=== PATIENT | female | born 1990 | race Caucasian/White ===

== ENCOUNTER 2018-05-02 12:46 | Emergency (ER) | payer MEDICAID ==
[~2018-05-02] VITALS: Ht 175.3 cm; Wt 86.4 kg
[2018-05-02 13:04] VITALS: BP 118/75
[2018-05-02] MEDS ORDERED: PROPARACAINE/FLUORESCEIN ophthalmic drops 5ml bottle RIGHTEYE ONE (13:50)
[2018-05-02] MEDS ORDERED: neomycin/polymyxn B/gramicidin ophthalmic drops 10ml EACHEYE ONE (14:10)
== END 2018-05-02 14:29 | disposition home or self-care (01) ==
LOC: ER 12:47
DX: H10.9 Unspecified conjunctivitis (principal); H00.021 Hordeolum internum right upper eyelid; J45.909 Unspecified asthma, uncomplicated; F12.10 Cannabis abuse, uncomplicated
CPT/HCPCS: 99282

== ENCOUNTER 2020-05-05 06:53 | Day surgery (SDC) | payer MEDICAID ==
[2020-05-02 14:58] LABS: BASOPHILS # (AUTO) 0.1 X10'3 (0-0.2); BASOPHILS % (AUTO) 0.5 % (0-1); EOSINOPHILS # (AUTO) 0.1 X10'3 (0-0.9); EOSINOPHILS % (AUTO) 1.1 % (0-6); LYMPHOCYTES # (AUTO) 1.9 X10'3 (1.1-4.8); LYMPHOCYTES % (AUTO) 19.2 % (21-51); MEAN CORPUSCULAR HEMOGLOBIN 30.3 PG (27.0-31.0); MEAN CORPUSCULAR HGB CONC 34.4 g/dL (33.0-36.5); MEAN PLATELET VOLUME 9.3 FL (7.4-10.4); MONOCYTES # (AUTO) 0.6 X10'3 (0-0.9); MONOCYTES % (AUTO) 5.7 % (2-12); NEUTROPHILS # (AUTO) 7.2 X10'3 (1.8-7.7); NEUTROPHILS % (AUTO) 73.5 % (42-75); PRE OP HEMATOCRIT 42.9 % (35.0-45.0); PRE OP HEMOGLOBIN 14.8 g/dL (12.0-16.0); PRE OP PLATELET COUNT 209 X10'3 (140-440); RED BLOOD COUNT 4.88 X10'6 (4.20-5.60); RED CELL DISTRIBUTION WIDTH 12.7 % (11.5-14.5)
[2020-05-02 15:08] LABS: ALBUMIN 4.2 G/DL (3.4-5.0); ALBUMIN/GLOBULIN RATIO 1.2 (1.1-1.5); ALKALINE PHOSPHATASE 85 IU/L (46-116); BLOOD UREA NITROGEN 9 MG/DL (7-18); BUN/CREATININE RATIO 10.5 (6.6-38.0); CHLORIDE 104 MMOL/L (99-107); CREATININE 0.86 MG/DL (0.40-0.90); PRE OP ALT 35 U/L (30-65); PRE OP ANION GAP 8 (8-16); PRE OP AST 22 U/L (10-37); PRE OP BILIRUB, TOTAL 0.5 MG/DL (0.0-1.0); PRE OP GLUCOSE 94 MG/DL (70-104); PRE OP POTASSIUM 3.6 MMOL/L (3.4-5.1); PRE OP SODIUM 138 MMOL/L (135-145); TOTAL CARBON DIOXIDE 25.6 MMOL/L (24-32); TOTAL PROTEIN 7.8 G/DL (6.4-8.2); eGFR 79 ML/MIN
[2020-05-02 15:09] LABS: HCG SERUM QL NEGATIVE
[~2020-05-05] VITALS: Ht 175.3 cm; Wt 97.3 kg
[~2020-05-05 06:53] MED LIST: famotidine 20mg tablet PO ONE; ringers solution, lacted 1,000 ML IV SCH
[2020-05-05] MEDS ORDERED: ringers solution, lacted 1,000 ML IV SCH (07:24)
[2020-05-05] MEDS ORDERED: ondansetron/PF 4mg/2ml inj IV PRN (07:25)
[2020-05-05] MEDS ORDERED: morphine 2 MG/ML inj. syringe IV PRN (07:25)
[2020-05-05] MEDS ORDERED: morphine 4 MG/ML inj SYRINge IV PRN (07:25)
[2020-05-05] MEDS ORDERED: ketorolac trometh. 30mg/ml inj. IV ONE (07:25)
[2020-05-05] MEDS ORDERED: proCHLORperazine 10 MG/2 ml inj IV PRN (07:25)
[2020-05-05] MEDS ORDERED: acetaminophen 1,000mg/100ml IV 100 ML IV PRN (07:25)
[2020-05-05] MEDS ORDERED: meperidine/PF 25mg/ml syringe IV PRN ×3 (07:25)
[2020-05-05 08:19] VITALS: BP 118/72
[2020-05-05] MEDS ORDERED: neostigmine methylsulfate 1 MG/ML 10ml vial ONE (09:12)
[2020-05-05] MEDS ORDERED: sevoflurane 250ml liquid IH ONE (09:12)
[2020-05-05] MEDS ORDERED: fentaNYL/PF 50MCG/1 ML 2ML syringe ONE (09:15)
[2020-05-05] MEDS ORDERED: midazolam 2 mg/2 ml injection ONE (09:15)
[2020-05-05] MEDS ORDERED: LIDOcaine 2% 5ml jelly ONE (09:17)
[2020-05-05] MEDS ORDERED: propofol inj 20 ML IV ONE (09:22)
[2020-05-05] MEDS ORDERED: LIDOcaine 2% (20mg/ml) 5ml vial ONE (09:23)
[2020-05-05] MEDS ORDERED: rocuronium 10mg/ml inj IV ONE (09:23)
[2020-05-05] MEDS ORDERED: ondansetron/PF 4mg/2ml inj ONE (09:30)
[2020-05-05] MEDS ORDERED: glycopyrrolate 0.2mg/ml inj ONE ×2 (09:30→09:38)
[2020-05-05] MEDS ORDERED: dexamethasone sod phosphate 4mg/ml inj. ONE (09:30)
[2020-05-05 09:35] VITALS: BP 118/72
[2020-05-05 09:58] VITALS: BP 133/79
--- NOTE | 2020-05-05 09:58 | NUR ---
ARRIVED IN PACU VIA GURNEY FROM OR WITH O2 ON. REPORT RECEIVED. VS STABLE
[2020-05-05 10:08] VITALS: BP 125/78
[2020-05-05 10:18] VITALS: BP 113/62
[2020-05-05 10:28] VITALS: BP 123/79
--- NOTE | 2020-05-05 10:38 | NUR ---
UP STEADY ON FEET. AMBULATED TO BR. VOIDED. REVIEWED DISCHARGE WITH PT AND INSTRUCTED HER TO HAVE FAMILY REVIEW THEM AGAIN WITH HER. TO CAR ASSISTED BY [place] WITHOUT INCIDENT
== END 2020-05-05 10:38 | disposition home or self-care (01) ==
LOC: PAS 06:53
PROVIDERS: ATTEND Obstetrics & Gynecology
DX: Z30.2 Encounter for sterilization (principal); Z20.828 Contact with and (suspected) exposure to other viral communicable diseases
CPT/HCPCS: 36415; 58670; 80053; 82948; 84703; 85025; 87635; J1100; J2001; J2250; J2405; J2704; J2710; J3010; J7120; A4618; A7000; J3490

== ENCOUNTER 2020-06-08 13:57 | Emergency (ER) | payer MEDICAID ==
[~2020-06-08] VITALS: Ht 175.3 cm; Wt 106.4 kg
[2020-06-08] MEDS ORDERED: ORPH100T2 PO (15:08)
[2020-06-08] MEDS ORDERED: PENI500T2 PO (15:08)
[2020-06-08] MEDS ORDERED: cyclobenzaprine 10mg tablet PO ONE (15:10)
[2020-06-08] MEDS ORDERED: ketorolac tromethamine 15mg/ml inj. IM ONE (15:10)
[2020-06-08 15:20] VITALS: BP 146/94
== END 2020-06-08 15:21 | disposition home or self-care (01) ==
LOC: ER 13:58
DX: K04.7 Periapical abscess without sinus (principal); G89.29 Other chronic pain; M54.5 Low back pain; J45.909 Unspecified asthma, uncomplicated; F12.90 Cannabis use, unspecified, uncomplicated; Z86.69 Personal history of other diseases of the nervous system and sense organs; Z72.89 Other problems related to lifestyle; Z79.2 Long term (current) use of antibiotics; Z79.899 Other long term (current) drug therapy
CPT/HCPCS: 96372; 99283; J1885

== ENCOUNTER 2023-05-31 15:34 | Emergency (ER) | payer MEDICAID ==
[~2023-05-31] VITALS: Ht 175.3 cm; Wt 100.9 kg
[~2023-05-31 15:34] MED LIST changes: +ORPH100T4 PO; -famotidine 20mg tablet PO ONE; -ringers solution, lacted 1,000 ML IV SCH
--- NOTE | 2023-05-31 16:00 | NUR ---
[place] requested pt remove her jewelry from her fingers, pt complied, tech flushed pt wound sites, pt has bilateral bites from a dog, tech rinsed wound areas and covered with 4x4 guaze pads and wrapped with coban. tech informed anthropology faculty member.
[2023-05-31 16:48] VITALS: BP 128/77; PULSE 107; RESP 16; TEMP 98.1; O2SAT 96
[2023-05-31] MEDS ORDERED: AMOX-117 PO (19:31)
[2023-05-31] MEDS ORDERED: NAPR-1154 PO (19:31)
== END 2023-05-31 19:53 | disposition home or self-care (01) ==
LOC: ER 15:34
DX: S61.532A Puncture wound without foreign body of left wrist, initial encounter (principal); S61.531A Puncture wound without foreign body of right wrist, initial encounter; S61.432A Puncture wound without foreign body of left hand, initial encounter; S61.431A Puncture wound without foreign body of right hand, initial encounter; J45.909 Unspecified asthma, uncomplicated; F12.90 Cannabis use, unspecified, uncomplicated; Z79.899 Other long term (current) drug therapy; Z72.89 Other problems related to lifestyle; Z79.2 Long term (current) use of antibiotics; W54.0XXA Bitten by dog, initial encounter; Y93.89 Activity, other specified; Y92.89 Other specified places as the place of occurrence of the external cause; Y99.8 Other external cause status
CPT/HCPCS: 73130; 99283; 99284; A6449